=== PATIENT | female | born 1985 | race Two or more races ===

== ENCOUNTER 2022-10-15 14:27 | Emergency (ER) | payer MEDICAID, OTHER ==
[~2022-10-15] VITALS: Ht 149.9 cm; Wt 76.7 kg
[2022-10-15 15:36] VITALS: BP 132/81
[2022-10-15] MEDS ORDERED: LIDOCAINE 1% HCL (LOCAL ANESTH.) INJ 20ML MDV ID ONE (15:45)
[2022-10-15] MEDS ORDERED: TETANUS-DIPTH-ACEL PERTUSSIS 0.5ML SYR Tdap IM ONE (15:45)
[2022-10-15] MEDS ORDERED: CEPH500C PO (15:55)
== END 2022-10-15 17:10 | disposition home or self-care (01) ==
LOC: ER 14:27 → EDSEX 14:27 → ER 17:10
DX: S61.213A Laceration without foreign body of left middle finger without damage to nail, initial encounter (principal); W26.0XXA Contact with knife, initial encounter; Y93.89 Activity, other specified; Y92.89 Other specified places as the place of occurrence of the external cause; Y99.8 Other external cause status
CPT/HCPCS: 12001; 73130; 90471; 90715; 99283; J2001

== ENCOUNTER 2023-09-23 17:52 | Emergency (ER) | payer MEDICAID ==
[~2023-09-23] VITALS: Ht 149.9 cm; Wt 77.0 kg
[~2023-09-23 17:52] MED LIST: CEPH500C PO
[2023-09-23 18:57] LABS: Basophils # (auto) 0 10 ^3/uL (0-0.2); Monocytes # (auto) 0.6 10 ^3/uL (0-1.3); Red Blood Cells 4.01 10^6/uL (4.0-5.20)
[2023-09-23 18:58] LABS: Basophils % (auto) 0.7 % (0.0-2.0); Eosinophils # (auto) 0.1 10 ^3/uL (0-0.8); Hematocrit 31.3 % (36.0-46.0); Hemoglobin 9.8 g/dL (12.2-16.2); Lymphocytes # (auto) 1.9 10 ^3/uL (0.4-5.4); Lymphocytes % (auto) 26.2 % (10.0-50.0); Mean Corpuscular Hemoglobin 24.5 pg (28.0-32.0); Mean Corpuscular Hgb Conc. 31.5 g/dL (32.0-36.0); Monocytes % (auto) 8.9 % (0.0-12.0); Neutrophils # (auto) 4.4 10 ^3/uL (1.6-8.6); Neutrophils % (auto) 62.2 % (37.0-80.0); Nucleated Red Blood Cells % 0.1 %; White Blood Cell 7.1 10^3/uL (4.4-10.8)
[2023-09-23 19:10] LABS: Chloride 110 mmol/L (98-107); Potassium 3.4 mmol/L (3.5-5.1); Sodium 139 mmol/L (136-145)
[2023-09-23 19:11] LABS: Anion Gap 4 (5-15); Calcium 9.2 mg/dL (8.5-10.1); Carbon Dioxide 25 mmol/L (20-30)
[2023-09-23 19:16] LABS: BUN/Creatinine Ratio 13.2 (10.0-20.0); Blood Urea Nitrogen 12 mg/dL (9-23); Glucose 148 mg/dL (74-106)
[2023-09-23 20:25] VITALS: BP 138/77; PULSE 79; RESP 16; O2SAT 97
[2023-09-23] MEDS: HYDROcodone-ACET 5/325MG TAB PO ONE (20:30)
== END 2023-09-23 20:38 | disposition home or self-care (01) ==
LOC: ER 17:52
DX: T83.32XA Displacement of intrauterine contraceptive device, initial encounter (principal); R10.2 Pelvic and perineal pain; N93.9 Abnormal uterine and vaginal bleeding, unspecified; F17.210 Nicotine dependence, cigarettes, uncomplicated; F12.10 Cannabis abuse, uncomplicated; Z98.51 Tubal ligation status
CPT/HCPCS: 36415; 76856; 80048; 84702; 85025